=== PATIENT | female | born 2000 | race Caucasian/White ===

== ENCOUNTER 2018-06-22 12:18 | Inpatient (IN) ==
[2018-06-22 14:53] LABS: Basophils % 0.2 % (0.0-0.8); Eosinophils # 0.1 10*3/uL (0.0-0.87); Eosinophils % 0.8 % (0.00-10.9); Hematocrit 39.4 VOL% (35.7-47.0); Hemoglobin 12.6 GM/DL (12.0-16.0); Immature Granulocytes % 0.6 %; Immature Granulocytes Absolute 0.06 #; Lymphocytes # 2.2 10*3/uL (1.4-4.0); Mean Corpuscular Hemoglobin 27 PG (27-34); Mean Corpuscular Volume 82.8 FL (87-102); Mean Platelet Volume 8.5 FL (9.6-12.0); Monocytes # 0.8 10*3/uL (0.11-0.8); Monocytes % 7.7 % (1.7-12.7); Neutrophils # 7.6 10*3/uL (1.4-7.4); Neutrophils % 70.7 % (38.7-73.9); Platelet Count 243 T/CUMM (130-400); Red Blood Count 4.76 MC/CUMM (3.8-5.5); Red Cell Distribution Width 12.8 % (9.3-17.3); White Blood Count 10.8 T/CUMM (4-12)
[2018-06-22 15:12] LABS: Calcium 8.7 MG/DL (8.5-10.1); Osmolality,Calculated 276.7 MOS/KG (273-304); Potassium 3.5 MMOL/L (3.5-5.1)
[2018-06-22] MEDS ORDERED: GLUCAGON 1 MG VIAL IM PRN (17:07)
[2018-06-22] MEDS ORDERED: DEXTROSE 50% 25 GM/50 ML VIAL IV PRN (17:07)
[2018-06-22] MEDS ORDERED: ACETAMINOPHEN 325 MG TABLET PO PRN (17:07)
[2018-06-22] MEDS: PANTOPRAZOLE 40 MG TABLET PO SCH (17:35)
[2018-06-22] MEDS: PIPERACILLIN/TAZOBACTAM 3,375 MG in SODIUM CHLORIDE 0.9% 100 ML IV SCH (17:40)
[2018-06-22] MEDS: INSULIN REGULAR 100 UNIT/ML SUBCUT SCH (21:02)
[2018-06-23] MEDS: PIPERACILLIN/TAZOBACTAM 3,375 MG in SODIUM CHLORIDE 0.9% 100 ML IV SCH ×3 (02:05→20:34)
[2018-06-23] MEDS: ONDANSETRON 4 MG/2 ML VIAL IV PRN ×2 (02:37→17:15)
[2018-06-23] MEDS: ENOXAPARIN 40 MG/0.4 ML SYRINGE SUBCUT SCH (07:54)
[2018-06-23] MEDS: INSULIN REGULAR 100 UNIT/ML SUBCUT SCH ×4 (07:54→20:34)
[2018-06-23] MEDS ORDERED: PROPOFOL 200 MG/20 ML VIAL IV ONE (10:19)
[2018-06-23] MEDS ORDERED: MIDAZOLAM 2 MG/2 ML VIAL ONE (10:20)
[2018-06-23] MEDS ORDERED: SEVOFLURANE 1 UNIT/15 MINUTE INH ONE (10:20)
[2018-06-23] MEDS ORDERED: fentaNYL 100 MCG/2 ML VIAL ONE (10:20)
[2018-06-23] MEDS ORDERED: ONDANSETRON 4 MG/2 ML VIAL ONE ×2 (10:20→10:35)
[2018-06-23] MEDS ORDERED: HYDROmorphone 2 MG/1 ML VIAL ONE (10:35)
[2018-06-23] MEDS ORDERED: ONDANSETRON 4 MG/2 ML VIAL IV PRN (10:40)
[2018-06-23] MEDS ORDERED: HYDROmorphone 2 MG/1 ML VIAL IV PRN (10:40)
[2018-06-23] MEDS: PANTOPRAZOLE 40 MG TABLET PO SCH (12:00)
[2018-06-24] MEDS: PIPERACILLIN/TAZOBACTAM 3,375 MG in SODIUM CHLORIDE 0.9% 100 ML IV SCH ×3 (06:39→20:26)
[2018-06-24] MEDS: ENOXAPARIN 40 MG/0.4 ML SYRINGE SUBCUT SCH (06:39)
[2018-06-24] MEDS: INSULIN REGULAR 100 UNIT/ML SUBCUT SCH ×4 (07:38→21:26)
[2018-06-24] MEDS: ONDANSETRON 4 MG/2 ML VIAL IV PRN ×2 (08:19→18:30)
[2018-06-24] MEDS: PANTOPRAZOLE 40 MG TABLET PO SCH (09:05)
[2018-06-25] MEDS: PIPERACILLIN/TAZOBACTAM 3,375 MG in SODIUM CHLORIDE 0.9% 100 ML IV SCH (05:54)
[2018-06-25] MEDS: ENOXAPARIN 40 MG/0.4 ML SYRINGE SUBCUT SCH (06:00)
[2018-06-25] MEDS: INSULIN REGULAR 100 UNIT/ML SUBCUT SCH ×2 (08:00→12:00)
[2018-06-25] MEDS: PANTOPRAZOLE 40 MG TABLET PO SCH (09:32)
[2018-06-25 12:30] VITALS: BP 147/82
== END 2018-06-25 13:15 | disposition home or self-care (01) | DRG 580 ==
LOC: N.EDINP 12:18 → N.ED 12:18 → N.3E 16:40
PROVIDERS: ADMIT Surgery; ATTEND Surgery